=== PATIENT | male | born 1970 | race Caucasian/White ===

== ENCOUNTER 2022-02-05 08:11 | Outpatient (CLI) | payer BC, SELFPAY ==
[2022-02-05 08:36] LABS: Basophils Percent Auto 0.6 % (0.2-1.2); Eosinophils Absolute Auto 0.2 K/mm3 (0-0.3); Hematocrit 45.5 % (42.0-52.0); Immature Granulocyte Absolute 0.01 K/mm3 (0.00-0.031); Immature Granulocyte Percent A 0.2 % (0-0.5); Lymphocytes Absolute Auto 1.77 K/mm3 (0.9-3.2); Lymphocytes Percent Auto 35.6 % (18.3-44.2); Mean Corpuscular Hemoglobin 29.6 pg (26-34); Mean Corpuscular Volume 89.9 fl (80-100); Mean Platelet Volume 10.3 fl (7.4-10.4); Monocytes Absolute Auto 0.5 K/mm3 (0.1-0.6); Monocytes Percent Auto 9.9 % (2.6-8.5); Neutrophils Absolute Auto 2.5 K/mm3 (1.3-6.7); Neutrophils Percent Auto 49.7 % (45.5-73.1); Platelet Count Result 160 k/mm3 (150-375); Red Blood Count 5.06 M/mm3 (4.6-6.20); Red Cell Distribution Width 12.7 % (11.5-14.5)
[2022-02-05 09:05] LABS: Alanine Aminotransferase 26 U/L (6-50); Alkaline Phosphatase 55 U/L (38-126); Anion Gap 5 mmol/L (8-16); Aspartate Amino Transferase 27 U/L (17-59); Bilirubin,Total 0.4 mg/dL (0.2-1.3); Blood Urea Nitrogen 11 mg/dL (9-20); Calcium 8.7 mg/dL (8.4-10.2); Carbon Dioxide 31 mmol/L (22-30); Chloride 103 mmol/L (98-107); Estimated Glomerular Filt Rate > 60; Glucose 91 mg/dL (65-110); Potassium 4.2 mmol/L (3.4-5.0); Sodium 139 mmol/L (137-145)
[2022-02-05 09:16] LABS: Hemoglobin A1C 5.7 % (<5.7)
[2022-02-05 11:20] LABS: Creatinine Urine 74.1 mg/dL
[2022-02-05 11:26] LABS: MALB Creatinine Ratio 9.7 mg/g (0-30); Microalbumin Urine Random 7.2 mg/L (0-16.7)
== END 2022-02-05 08:12 | disposition home or self-care (01) ==
LOC: ANHLAB 08:15
PROVIDERS: PCP Internal Medicine; Visit Provider Internal Medicine
DX: E11.65 Type 2 diabetes mellitus with hyperglycemia (principal)
CPT/HCPCS: 36415; 80053; 82043; 83036; 84443; 85025

== ENCOUNTER 2022-08-14 19:34 | Emergency (ER) | payer BC, SELFPAY ==
--- NOTE | ~2022-08-14 | XR_ITS ---
EXAMINATION: XR shoulder RT min 2V DATE: 08/14/2022 19:57 INDICATION: Trauma to the right shoulder post fall TECHNIQUE: AP internally and externally rotated, AP oblique externally rotated and transscapular Y vi ews of the right shoulder were obtained. COMPARISON: None FINDINGS: Normal alignment. No fracture. Mild glenohumeral osteoarthritis with cephalad predominant mild nonun iform joint space narrowing. Acromioclavicular joint is normal. Small calcified nodule at the right a pex consistent with old granulomatous disease. Soft tissues are unremarkable. IMPRESSION: Mild right glenohumeral osteoarthritis. No acute osseous abnormality. Reviewed, dictated and finalized at location A. [employer]
[2022-08-14 19:40] VITALS: BP 177/92; PULSE 84; RESP 16; TEMP 36.3; O2SAT 100
--- NOTE | 2022-08-14 21:20 | ED.FALL ---
HPI - Fall General Chief Complaint: Fall Stated Complaint: fall, right shoulder injury Time Seen by Provider: 08/14/22 20:00 History of Present Illness HPI Narrative: Patient is a 52-year-old male presenting with right shoulder pain. Patient states that he fell while getting into a hot tub approximately 2 days ago he slipped and fell onto his right shoulder. States that he did not strike his head or lose consciousness. Since that time he has had persistent shoulder pain that worsened today so he became concerned that he might have broken something. States that he also has a headache that started today. He has not taken any Tylenol or ibuprofen today. He denies any numbness or weakness, vision changes, speech difficulties, gait difficulties, vomiting. He denies further complaints or injury. Related Data Allergies Allergy/AdvReac Type Severity Reaction Status Date / Time erythromycin base Allergy Mild Unverified 01/21/19 09:20 moxifloxacin Allergy Mild Unverified 01/21/19 09:20 penicillin G Allergy Mild Unverified 01/21/19 09:20 Penicillins Allergy Mild Unverified 01/21/19 09:20 Quinolones Allergy Mild Unverified 01/21/19 09:20 Sulfa (Sulfonamide Allergy Mild Unverified 01/21/19 09:20 Antibiotics) Review of Systems Review of Systems: All systems reviewed & are unremarkable except as noted in HPI and below Exam Narrative: GENERAL: Well-appearing, well-nourished, and in no acute distress. HEAD: Normocephalic, atraumatic. EYES: PERRLA and EOMI. ENT: Nares clear, no rhinorrhea or epistaxis. Mucous membranes moist. NECK: Supple. CHEST: Clear to auscultation. No respiratory distress. HEART: Regular rate and rhythm. No murmur heard. Normal peripheral pulses. ABDOMEN: Soft, nontender, nondistended, normal active bowel sounds. EXTREMITIES: Normal range of motion. No edema. SKIN: Warm, dry, no rash. NEURO: No focal deficits. Alert and oriented x3. PSYCH: Normal mood and affect. Course Vital Signs Vital signs: Vital Signs Temperature 97.4 F L 08/14/22 19:40 Pulse Rate 84 08/14/22 19:40 Respiratory Rate 16 08/14/22 19:40 Blood Pressure 177/92 H 08/14/22 19:40 Pulse Oximetry 100 08/14/22 19:40 Oxygen Delivery Room Air 08/14/22 19:40 Temperature 97.4 F L 08/14/22 19:40 Pulse Rate 84 08/14/22 19:40 Respiratory Rate 16 08/14/22 19:40 Blood Pressure 177/92 H 08/14/22 19:40 Pulse Oximetry 100 08/14/22 19:40 Oxygen Delivery Room Air 08/14/22 19:40 MDM - Fall MDM Narrative Medical decision making narrative: Patient is a 52-year-old male presenting with right shoulder pain after a fall. Patient is hypertensive, otherwise vitals are within normal limits. Exam is unremarkable. X-ray shows no evidence of acute abnormalities. There is evidence of some mild osteoarthritis. Discussed the reassuring imaging with the patient. Advised Tylenol and ibuprofen for pain control. Discussed appropriate return precautions and follow-up. Patient voiced understanding and is agreeable with plan. Discharged in stable condition. Critical Care Time Critical Care Time Critical Care Time: No Discharge Plan Discharge Clinical Impression: Right shoulder pain Patient Disposition: Home, Self-Care Condition: Stable Instructions: Antibiotic Form, Shoulder Pain (ED) Additional Instructions: Please follow-up with your primary care provider. Please use Tylenol and ibuprofen for pain control. If you develop any suddenly worsening headache, nausea or vomiting, numbness or weakness, or other concerning symptoms arise, please return to the ER. Follow-up/Referrals: Jacques,Lawrence Villagomez MD [Primary Care Provider] -
== END 2022-08-14 21:47 | disposition home or self-care (01) ==
PROVIDERS: Emergency Provider Emergency Medicine; PCP Internal Medicine
DX: S49.91XA Unspecified injury of right shoulder and upper arm, initial encounter (principal); M19.011 Primary osteoarthritis, right shoulder; W01.0XXA Fall on same level from slipping, tripping and stumbling without subsequent striking against object, initial encounter
CPT/HCPCS: 73030; 99283